=== PATIENT | male | born 1960 | race Caucasian/White ===

== ENCOUNTER 2023-02-10 06:03 | Emergency (ER) | payer OTHER ==
[2023-02-10] MEDS ORDERED: Morphine 4 MG/ML VIAL IVPUSH ONE (06:06)
[2023-02-10] MEDS ORDERED: Ondansetron 4 MG/2 ML SDV IVPUSH ONE (06:07)
[2023-02-10] MEDS ORDERED: Sodium Chloride 0.9% 1,000 ML IV ONE (06:15)
[2023-02-10 06:32] LABS: ESTIMATED GFR 57 mL/min (>60)
[2023-02-10] MEDS ORDERED: Morphine 2 MG/ML SYRINGE IVPUSH ONE (08:01)
[2023-02-10] MEDS ORDERED: Ketorolac 30 MG/ML SDV IVPUSH ONE (08:01)
[2023-02-10 11:16] VITALS: BP 124/73; PULSE 80
== END 2023-02-10 08:42 | disposition home or self-care (01) ==
LOC: FB.ED 06:03
DX: N20.0 Calculus of kidney (principal); E86.0 Dehydration; N17.9 Acute kidney failure, unspecified; I10 Essential (primary) hypertension; Z79.899 Other long term (current) drug therapy
CPT/HCPCS: 74176; 80048; 85025; 96361; 96374; 96375; 96376; 99283; 99284-25; J1885; J2270; J2405; J7030